=== PATIENT | male | born 1955 | race Caucasian/White ===

== ENCOUNTER 2021-02-07 06:26 | Day surgery (SDC) | payer BC, OTHER ==
[~2021-02-07] VITALS: Ht 177.8 cm; Wt 78.2 kg
[~2021-02-07 06:26] MED LIST: FAMO40 PO; HYDACE5325 PO; LISHYD1012 PO; LOTE.2OPSU RIGHTEYE; METCAR500 PO; NEBI5 PO; REFRESH P M O RIGHTEYE; SIMV10 PO; TIMO.5OPSO RIGHTEYE; XARELTO20 MG PO; ZOLP10 PO
== END 2021-02-07 22:56 | disposition home or self-care (01) ==
LOC: MHTC 06:26
DX: I34.0 Nonrheumatic mitral (valve) insufficiency (principal); I34.1 Nonrheumatic mitral (valve) prolapse; I48.19 Other persistent atrial fibrillation; Q21.1 Atrial septal defect; E78.5 Hyperlipidemia, unspecified; I10 Essential (primary) hypertension; K21.9 Gastro-esophageal reflux disease without esophagitis; Z79.01 Long term (current) use of anticoagulants
CPT/HCPCS: 93312; 93325; A9270; J2704; J7030

== ENCOUNTER 2021-03-25 08:12 | Day surgery (SDC) | payer BC, OTHER ==
[~2021-03-25] VITALS: Ht 177.8 cm; Wt 79.5 kg
--- NOTE | 2021-03-25 11:50 | NUR ---
PT BROUGHT BACK TO RECOVERY ROOM VIA RECLINER, RIGHT WRIST WITH TR BAND ON, AIR IN, ARM BOARD FOR SUPPORT. PT APPEARS TO BE AWAKE AND ALERT, FORGETFUL AT TIMES NOT TO USE RIGHT HAND, VERBALLY STATES UNDERSTANDING WHEN REMINDED. DENIES PAIN. PROVIDED WITH MEAL TRAY, TOLERATES WITH NO DIFFICULTIES. WILL CONTINUE TO MONITOR.
--- NOTE | 2021-03-25 12:50 | NUR ---
TR BAND FULLY DEFLATED, REMAINS ON RIGHT WRIST WITH ARM BOARD ON FOR SUPPORT. NO BLEEDING OR OOZING NOTED. VSS. CALL LIGHT IN REACH. PT CALLING TO ARRANGE RIDE HOME.
--- NOTE | 2021-03-25 13:57 | NUR ---
TR BAND REMOVED FROM RIGHT WRIST, RED CLOTH DOT DRESSING APPLIED, ARM BOARD ON FOR SUPPORT, NO SIGNS OF BLEEDING, OOZING, OR PAIN. PT GETS DRESSED WITH NO NEEDED ASSISTANCE. IV REMOVED WITH CATH INTACT, PRESSURE DRESSING APPLIED. DISCHARGE PAPERWORK PROVIDED IN FOLDER, VERBAL UNDERSTANDING FROM PT. ARRIVES TO DRIVE PT HOME. DENIES NEED FOR W/C RIDE OUT TO PRIVATE VEHICLE.
== END 2021-03-25 15:58 | disposition home or self-care (01) ==
LOC: MHTC 08:12
DX: I34.1 Nonrheumatic mitral (valve) prolapse (principal); I10 Essential (primary) hypertension; E78.5 Hyperlipidemia, unspecified; I48.91 Unspecified atrial fibrillation; Z79.01 Long term (current) use of anticoagulants
CPT/HCPCS: 76937; 93454; 99152; 99153; C1769; C1894; J1644; J2250; J3010; J7030; J7050; Q9967

== ENCOUNTER 2021-12-19 06:26 | Day surgery (SDC) | payer OTHER ==
[~2021-12-19] VITALS: Ht 177.8 cm; Wt 79.2 kg
[2021-12-19] MEDS ORDERED: Aspir 8181 MG (07:11)
--- NOTE | 2021-12-19 07:54 | NUR ---
12/19/21 0754 Edmund Elder BUPIVACAINE 0.5% 30 MLS MIXED WITH 0.15ML EPI PER ORDER TO MAKE BUPIVACAINE 0.5[facility] 1[facility].
== END 2021-12-19 09:25 | disposition home or self-care (01) ==
LOC: ORSCSDS 06:26
PROVIDERS: Orthopaedic Surgery
PROC: 0PSM04Z Reposition Right Carpal with Internal Fixation Device, Open Approach (ICD-10-PCS; principal; 2021-12-19 07:30)
DX: S62.001A Unspecified fracture of navicular [scaphoid] bone of right wrist, initial encounter for closed fracture (principal); I10 Essential (primary) hypertension; I48.91 Unspecified atrial fibrillation; Z79.01 Long term (current) use of anticoagulants; E78.00 Pure hypercholesterolemia, unspecified; Z79.899 Other long term (current) drug therapy; Z79.82 Long term (current) use of aspirin
CPT/HCPCS: C1713; C1769; J0171; J0690; J1100; J2250; J2405; J2704; J3010; J7120

== ENCOUNTER → 2023-01-22 | Outpatient (CLI) | payer OTHER ==
[~2023-01-22] MED LIST changes: +Aspir 8181 MG
[2023-01-23 08:28] LABS: Stool Occult Bld Immuno 1 Positive (NEGATIVE)
== END | disposition home or self-care (01) ==
LOC: LAB SHORT 08:55 → LAB 08:55
PROVIDERS: Internal Medicine
DX: Z12.11 Encounter for screening for malignant neoplasm of colon (principal)
CPT/HCPCS: G0328

== ENCOUNTER 2025-06-02 18:27 | Emergency (ER) | payer OTHER ==
[~2025-06-02] VITALS: Ht 175.3 cm; Wt 77.1 kg
[2025-06-02 19:06] VITALS: BP 137/86
[2025-06-02 19:38] LABS: Source, Urine Clean Catch
[2025-06-02 19:43] LABS: BASOPHILS ABSOLUTE AUTO 0.03 K/mm3 (0.00-0.23); BASOPHILS PERCENT AUTO 0 % (0-2); EOSINOPHILS ABSOLUTE AUTO 0.08 K/mm3 (0.00-0.68); EOSINOPHILS PERCENT AUTO 1 % (0-6); Hematocrit 43.8 % (37.0-53.0); Hemoglobin 14.8 g/dL (13.5-17.5); IMMATURE GRAN ABSOLUTE AUTO 0.02 K/mm3 (0.00-0.10); IMMATURE GRAN PERCENT AUTO 0 % (0-1); LYMPHOCYTES ABSOLUTE AUTO 1.80 K/mm3 (0.84-5.20); LYMPHOCYTES PERCENT AUTO 25 % (21-46); MONOCYTES ABSOLUTE AUTO 0.47 K/mm3 (0.16-1.47); MONOCYTES PERCENT AUTO 7 % (4-13); Mean Corpuscular HGB Conc 33.8 g/dL (31.5-36.5); Mean Corpuscular Volume 98 fL (80-100); NEUTROPHILS ABSOLUTE AUTO 4.84 K/mm3 (1.96-9.15); NEUTROPHILS PERCENT AUTO 67 % (41-73); NRBC ABSOLUTE 0.00 K/mm3 (0.00-0.02); NRBC Auto 0.0 /100 WBC (0.0-0.2); Platelet Count 158 K/mm3 (150-400); RDW Coefficient Variation 12.5 % (11.7-14.2); RDW Standard Deviation 44.9 fL (35.1-46.3)
[2025-06-02 19:44] LABS: Bilirubin, Urine Neg (Neg); Color, Urine Yellow (P-Yellow); Glucose Qualitative, Urine Neg (Neg); Ketones, Urine Neg (Neg); Leukocyte Esterase, Urine 1+ (Neg); Protein, Urine 2+ (Neg); Specific Gravity, Urine 1.010 (1.003-1.022); Urobilinogen, Urine NORM (Normal)
[2025-06-02 19:55] LABS: Red Blood Cells, Urine TNTC /hpf (0-2)
[2025-06-02 20:14] LABS: Alanine Aminotransfer (ALT/SGP 25.0 U/L (12-78); Albumin, Blood 4.3 g/dL (3.4-5.0); Albumin/Globulin Ratio 1.2 (0.8-1.8); Anion Gap 6.0 mmol/L (3-11); Aspartate Aminotrans (AST/SGOT 21.0 U/L (12-37); Bilirubin, Total 0.7 mg/dL (0.1-1.0); Blood Urea Nitrogen 27.0 mg/dL (8-24); CO2, Blood 27.0 mmol/L (21-32); Calcium, Blood 9.5 mg/dL (8.5-10.1); Chloride, Blood 105.0 mmol/L (98-108); Creatinine, Blood 1.07 mg/dL (0.60-1.20); Globulin, Blood 3.7 g/dL (2.2-4.0); Glucose, Blood 142.0 mg/dL (70-99); Potassium, Blood 3.4 mmol/L (3.5-5.5); Sodium, Blood 135.0 mmol/L (136-145); Total Protein, Blood 8.0 g/dL (6.4-8.2)
[2025-06-02] MEDS ORDERED: ONDA4ODT MM (22:30)
[2025-06-02] MEDS ORDERED: RX Prepack 2 Tabs Ondansetron ODT 4MG UD ONE (22:35)
[2025-06-02] MEDS ORDERED: RX Prepack 6 Tabs Oxycodone 5mg UD ONE (22:35)
== END 2025-06-02 22:44 | disposition home or self-care (01) ==
LOC: ER 18:27
PROVIDERS: Student in an Organized Health Care Education/Training Program
DX: R10.9 Unspecified abdominal pain (principal); R31.9 Hematuria, unspecified; E87.1 Hypo-osmolality and hyponatremia; I10 Essential (primary) hypertension; Z79.01 Long term (current) use of anticoagulants; Z79.82 Long term (current) use of aspirin; Z79.899 Other long term (current) drug therapy
CPT/HCPCS: 76770; 80053; 81001; 83690; 85025; A9270

== ENCOUNTER → 2025-07-15 | Outpatient (CLI) | payer OTHER ==
[~2025-07-15] MED LIST changes: +ONDA4ODT MM
[2025-07-15 18:22] LABS: Bilirubin, Urine Neg (Neg); Glucose Qualitative, Urine Neg (Neg); Ketones, Urine Neg (Neg); Leukocyte Esterase, Urine Neg (Neg); Protein, Urine Neg (Neg); Specific Gravity, Urine 1.005 (1.003-1.022); Urobilinogen, Urine NORM (Normal)
[2025-07-15 18:28] LABS: Color, Urine Pale Yellow (P-Yellow)
== END ==
LOC: LAB SHORT 18:11 → LAB 18:11
PROVIDERS: Urology
DX: N20.1 Calculus of ureter (principal)
CPT/HCPCS: 81003